=== PATIENT | female | born 1970 | race Caucasian/White ===

== ENCOUNTER 2017-01-28 16:29 | Emergency (ER) | payer OTHER ==
[~2017-01-28] VITALS: Ht 172.7 cm; Wt 129.9 kg
[2017-01-28 17:57] LABS: MCH 28.3 PG (29.0-34.0); MCHC 33.4 G/DL (30.0-36.0); MCV 84.7 FL (83-99); MEAN PLAT.VOLUME 10.5 uM^3 (9.5-12.4); PLATELET COUNT 159 K/uL (156-360); RBC DIS.WIDTH-CV 13.2 % (11.8-14.6); RBC DIS.WIDTH-SD 41.2 % (39-53); RED BLOOD COUNT 4.13 M/uL (3.80-5.20); WHITE BLOOD COUNT 8.3 K/uL (4.1-10.2)
[2017-01-28 18:17] LABS: QUANTITATIVE HCG < 4.0 MIU/ML
[2017-01-28 19:25] LABS: CHLORIDE 109 mEq/L (99-109); POTASSIUM 3.5 mEq/L (3.7-5.4); SODIUM 142 mEq/L (136-147)
[2017-01-28 19:25] LABS: ADD MIUA? YES; BILIRUBIN NEGATIVE; BLOOD LARGE; GLUCOSE (STRIP) NEGATIVE; KETONES NEGATIVE; NITRITE NEGATIVE; PROTEIN (STRIP) 100; UROBILINOGEN 0.2 MG/DL (0.2-1.0)
[2017-01-28 19:28] LABS: GLUCOSE 116 mg/dL (70-99)
[2017-01-28 19:29] LABS: ANION GAP 11 MEQ/L (2-14)
[2017-01-28 19:30] LABS: TOTAL BILIRUBIN 0.3 mg/dL (0.0-1.0)
[2017-01-28 19:31] LABS: ALKALINE PHOSPHATASE 58 IU/L (3-129); GFR ESTIMATE (CALCULATED) > 59 mL/min/
[2017-01-28 19:32] LABS: UREA NITROGEN (BUN) 13 mg/dL (9-23)
[2017-01-28 19:56] LABS: COLOR BLOODY ((YELLOW)); LEUKOCYTES TRACE; SPECIFIC GRAVITY 1.025 (1.000-1.030)
[2017-01-28 20:10] LABS: RED BLOOD CELLS TNTC /HPF (0-5); UCUL ADDED? YES
[2017-01-28 23:23] VITALS: BP 150/78
== END 2017-01-28 23:27 | disposition home or self-care (01) ==
LOC: EME 16:29
DX: D25.9 Leiomyoma of uterus, unspecified (principal); N92.0 Excessive and frequent menstruation with regular cycle
CPT/HCPCS: 74177; 76856; 80053; 81003; 84702; 85027; 87086; 99281; 99284; J3010; J7030